=== PATIENT | female | born 1995 | race Caucasian/White ===

== ENCOUNTER 2017-12-26 04:08 | Emergency (ER) | payer BC ==
[~2017-12-26] VITALS: Ht 162.6 cm; Wt 61.4 kg
[2017-12-26 04:08] VITALS: TEMP 37.5; Ht 162.6 cm; Wt 61.4 kg
--- NOTE | 2017-12-26 04:25 | EMERGENCY ROOM VISIT NOTE ---
History First contact with patient: 04:12 Chief Complaint: MENTAL HEALTH EVALUATION Stated Complaint: MENTAL HEALTH History of Present Illness The patient is a 22 year old female who presents to the Emergency Room of sadness. Notes history of depression though over last few months seems to be gradually worsening. Denies specific cause nor event that has preceded this. She has been on/off Lexapro without improvement. She follows with her PCP and no psychiatry. Notes last week has been "really rough" with sporadic non- specific suicidal thoughts. She got very upset this evening after drinking etoh and smoking marijuana and told her roomaae about this. She is adamant no plan nor that she would actually kill herself. No hallucinations. No homicidal thoughts. Denies tyl/motrin/aspirin use. She is a student at [employer]. Nothing makes better nor worse. Denies relationship issues. Denies physical/sexual assault. States feels safe at home. Review of Systems See HPI for pertinent positives & negatives. A total of 10 systems reviewed and were otherwise negative. Family History Denies pertinent family history. Social History Smoking Status: Never Smoker Smokeless Tobacco Use: No Alcohol Use: occasionally Drug Use: marijuana Marital Status: single Housing Status: lives with roommate Occupation Status: [employer] student Current/Historical Medications Scheduled Control Pills ( Control Pills), 1 TAB PO DAILY Physical Exam Vital Signs Date Time Temp Pulse Resp B/P (MAP) Pulse Ox O2 Delivery O2 Flow Rate FiO2 12/26/17 06:45 71 16 119/81 99 12/26/17 05:28 98 16 114/78 99 Room Air 12/26/17 04:08 37.5 114 18 161/103 97 Room Air Physical Exam GENERAL: Patient is sad appearing and in mild distress. EYES: No scleral icterus, unremarkable pupils. ENT: Mucous membranes moist, no nasal congestion. NECK: No masses appreciated, no meningismus, trachea is midline. RESPIRATORY: No dyspnea. Clear to auscultation and equal bilaterally. No wheeze , no rhonchi. CARDIOVASCULAR: Tachy. No murmurs, rubs, gallops appreciated. GASTROINTESTINAL: Abdomen soft, nontender, no peritonitis. Bowel sounds positive. No masses appreciated. BACK: No midline tenderness, no CVA tenderness EXTREMITIES: Normal motion all extremities, no cyanosis, no edema. NEUROLOGIC: Alert and oriented, no acute motor or sensory deficits, no focal weakness, cranial nerves grossly intact. SKIN: No rash, no jaundice, no diaphoresis. PSYCH: Sad, crying. Admits depression. Admits fleeting suicidal thoughts without plan. No hallucinations/not homicidal. Medical Decision & Procedures Laboratory Results 12/26/17 04:29 Red Blood Count 4.66, Mean Corpuscular Volume 89.3, Mean Corpuscular Hemoglobin 31.5, Mean Corpuscular Hemoglobin Concent 35.3, Mean Platelet Volume 10.6, Neutrophils (%) (Auto) 68.7, Lymphocytes (%) (Auto) 25.5, Monocytes (%) (Auto) 4.5, Eosinophils (%) (Auto) 0.7, Basophils (%) (Auto) 0.4, Neutrophils # (Auto) 6.91, Lymphocytes # (Auto) 2.56, Monocytes # (Auto) 0.45, Eosinophils # (Auto) 0.07, Basophils # (Auto) 0.04 12/26/17 04:29 Test 12/26/17 04:25 12/26/17 04:29 Urine Color YELLOW Urine Appearance CLEAR (CLEAR) Urine pH 5.0 (4.5-7.5) Urine Specific [place] 1.014 (1.000-1.030) Urine Protein NEG (NEG) Urine Glucose (UA) NEG (NEG) Urine Ketones NEG (NEG) Urine Occult Blood TRACE (NEG) Urine Nitrite NEG (NEG) Urine Bilirubin NEG (NEG) Urine Urobilinogen NEG (NEG) Urine Leukocyte Esterase NEG (NEG) Urine WBC (Auto) 1-5 /hpf (0-5) Urine RBC (Auto) >30 /hpf (0-4) Urine Hyaline Casts (Auto) 1-5 /lpf (0-5) Urine Epithelial Cells (Auto) 5-10 /lpf (0-5) Urine Bacteria (Auto) NEG (NEG) Urine Test NEG (NEG) Urine Opiates Screen NEG (NEG) Urine Methadone, Qualitative NEG (NEG) Urine Barbiturates NEG (NEG) Urine Phencyclidine (PCP) Level NEG (NEG) Ur Amphetamine/Methamphetamine NEG (NEG) MDMA (Ecstasy) Screen NEG (NEG) Urine Benzodiazepines Screen NEG (NEG) Urine Cocaine Metabolite NEG (NEG) Urine Marijuana (THC) NEG (NEG) White Blood Count 10.05 K/uL (4.8-10.8) Red Blood Count 4.66 M/uL (4.2-5.4) Hemoglobin 14.7 g/dL (12.0-16.0) Hematocrit 41.6 % (37-47) Mean Corpuscular Volume 89.3 fL (80-100) Mean Corpuscular Hemoglobin 31.5 pg (25-34) Mean Corpuscular Hemoglobin Concent 35.3 g/dl (32-36) Platelet Count 288 K/uL (130-400) Mean Platelet Volume 10.6 fL (7.4-10.4) Neutrophils (%) (Auto) 68.7 % Lymphocytes (%) (Auto) 25.5 % Monocytes (%) (Auto) 4.5 % Eosinophils (%) (Auto) 0.7 % Basophils (%) (Auto) 0.4 % Neutrophils # (Auto) 6.91 K/uL (1.4-6.5) Lymphocytes # (Auto) 2.56 K/uL (1.2-3.4) Monocytes # (Auto) 0.45 K/uL (0.11-0.59) Eosinophils # (Auto) 0.07 K/uL (0-0.5) Basophils # (Auto) 0.04 K/uL (0-0.2) RDW Standard Deviation 40.0 fL (36.4-46.3) RDW Coefficient of Variation 12.5 % (11.5-14.5) Immature Granulocyte % (Auto) 0.2 % Immature Granulocyte # (Auto) 0.02 K/uL (0.00-0.02) Anion Gap 6.0 mmol/L (3-11) Est Creatinine Clear Calc Drug Dose 83.8 ml/min Estimated GFR () 103.8 Estimated GFR (Non- 89.6 BUN/Creatinine Ratio 8.6 (10-20) Calcium Level 8.8 mg/dl (8.5-10.1) Total Bilirubin 0.3 mg/dl (0.2-1) Aspartate Amino Transf (AST/SGOT) 6 U/L (15-37) Alanine Aminotransferase (ALT/SGPT) 14 U/L (12-78) Alkaline Phosphatase 56 U/L (45-117) Total Protein 8.2 gm/dl (6.4-8.2) Albumin 4.2 gm/dl (3.4-5.0) Globulin 4.0 gm/dl (2.5-4.0) Albumin/Globulin Ratio 1.1 (0.9-2) Thyroid Stimulating Hormone (TSH) 1.700 uIu/ml (0.300-4.500) Salicylates Level < 1.7 mg/dl (2.8-20) Acetaminophen Level < 2 ug/ml (10-30) Ethyl Alcohol mg/dL 43.0 mg/dl (0-3) Medical Decision Differential: Mood Disorder, Overdose, Infectious, Electrolyte Abnormality, Cardiac, Hepatic, Endocrine, Toxicologic, Neurologic, amongst other pathologies entertained. Pleasant yet sad 22 yr old student arrives for evaluation of worsening depression. Eventually calming down. Denies current suicidal ideation, has not had a plan and has never made act of furtherance. No previous suicide attempts per patient. No 302 and roommate feels she is safe at home. [facility] evaluated patient and while we both feel that patient would likely have some benefit form inpatient treatment, she [id number] declines this and does not meet any criteria for 302 at this time. Patient willing to let us contact her PCP. We discussed strategies to decrease stress/anxiety. We discussed how she can always return for further evaluation. Stable and comfortable at time of discharge. Head Trauma GCS Score: 15 Medication Reconcilliation Current Medication List: was personally reviewed by me Blood Pressure Screening Patient's blood pressure: Normal blood pressure Impression Primary Impression: Depression Departure Information Dispostion Home / Self-Care Condition GOOD Patient Instructions Depression Know Signs Sx, My [facility] Additional Instructions We are always here to help. If at any time you feel you are at risk of harming yourself or others, call 911 or return immediately. It is very important you avoid any further alcohol intake in the near future as this can worsen depression and lower inhibitions.
[2017-12-26] MEDS ORDERED: BCPILLS PO (04:36)
[2017-12-26 04:45] LABS: BASO % 0.4 %; BASO ABS # 0.04 K/uL (0-0.2); EOS % 0.7 %; EOS ABS # 0.07 K/uL (0-0.5); HEMATOCRIT 41.6 % (37-47); HEMOGLOBIN 14.7 g/dL (12.0-16.0); IG# 0.02 K/uL (0.00-0.02); LYMPH % 25.5 %; LYMPH ABS # 2.56 K/uL (1.2-3.4); MEAN CELL VOLUME 89.3 fL (80-100); MEAN CORPUSCULAR HEMOGLOBIN 31.5 pg (25-34); MEAN CORPUSCULAR HGB CONC 35.3 g/dl (32-36); MEAN PLATELET VOLUME 10.6 fL (7.4-10.4); MONO % 4.5 %; MONO ABS # 0.45 K/uL (0.11-0.59); NEUT % 68.7 %; NEUT ABS # 6.91 K/uL (1.4-6.5); PLATELET COUNT 288 K/uL (130-400); RED CELL DISTRIBUTION WIDTH CV 12.5 % (11.5-14.5); WHITE BLOOD COUNT 10.05 K/uL (4.8-10.8)
[2017-12-26 05:09] LABS: ALBUMIN 4.2 gm/dl (3.4-5.0); CALCIUM 8.8 mg/dl (8.5-10.1); CREATININE 0.91 mg/dl (0.60-1.20); POTASSIUM 3.7 mmol/L (3.5-5.1)
[2017-12-26 05:20] LABS: TOTAL PROTEIN 8.2 gm/dl (6.4-8.2)
[2017-12-26 06:45] VITALS: BP 119/81; PULSE 71; O2SAT 99
--- NOTE | 2017-12-27 16:51 | Pharmacy Progress Note ---
ED Pharmacist Progress Note Date of Service: Dec 27, 2017. Patient called saying she was seen in the ED a few days ago. She was hoping to get a new prescription for an SSRI from her PCP, but when she called her PCP, they were unaware of the ER visit and did not help the patient. I subsequently called the patient's PCP's office (Dr. Ray Healy) with the patient's permission to see if there was any further information they needed in order to assist the patient. The nurse stated she did not have a record of the patient calling the office and stated she would call the patient and suggest coming in for an appointment. I did verify with the patient that she was then contacted by the office and any issues were resolved.
== END 2017-12-26 06:46 | disposition home or self-care (01) ==
LOC: EDBD 04:08 → C.EDA 04:09
DX: F32.9 Major depressive disorder, single episode, unspecified (principal); Z79.3 Long term (current) use of hormonal contraceptives